=== PATIENT | female | born 1960 | race Caucasian/White ===

== ENCOUNTER 2018-02-04 16:06 | Inpatient (IN) | payer BC, OTHER ==
[~2018-02-04] VITALS: Ht 160 cm; Wt 58.5 kg
[~2018-02-04 16:06] MED LIST: ACET-1600 PO; CEPH-368 PO; CHOL500050 PO; HYDR-3245 PO; IBUP-1223 PO; NONE PER PT
[2018-02-04] MEDS ORDERED: SODIUM CHLORIDE FLUSH 10ML SYR IVF ONE (16:30)
[2018-02-04] MEDS ORDERED: KETOROLAC 30 MG/1 ML IVPush ONE (16:30)
[2018-02-04] MEDS ORDERED: DIAZEPAM 5 MG TABLET PO ONE (16:30)
[2018-02-04] MEDS ORDERED: KETOROLAC 30 MG/1 ML ONE (16:34)
[2018-02-04] MEDS ORDERED: DIAZEPAM 5 MG TABLET ONE ×2 (16:34→17:21)
[2018-02-04 16:53] LABS: ALBUMIN 3.8 g/dL (3.4-5.0); ANION GAP 10 mmol/L (5-15); CALCIUM 8.9 mg/dL (8.5-10.1); CHLORIDE 110 mmol/L (98-107); CREATININE 0.79 mg/dL (0.55-1.02)
[2018-02-04 17:09] LABS: MEAN CORPUSCULAR HGB CONC 33.5 g/dL (32.4-35.8); MEAN CORPUSCULAR VOLUME 92.6 fL (80-100); RED BLOOD COUNT 3.71 x10^6/uL (3.82-5.3)
[2018-02-04 17:10] LABS: LYMPHOCYTES % (AUTO) 21 % (22-44); MEAN PLATELET VOLUME 6.8 fL (7.4-10.4); MONOCYTES % (AUTO) 8 % (2-9); NEUTROPHILS % (AUTO) 66 % (42-75); PLATELET COUNT 319 x10^3/uL (130-400); RED CELL DISTRIBUTION WIDTH 16.2 % (9.6-15.2)
[2018-02-04 17:11] LABS: BASOPHILS # (AUTO) 0.02 x10^3/uL (0-0.1); BASOPHILS % (AUTO) 0 % (0-1); EOSINOPHILS # (AUTO) 0.31 x10^3/uL (0-0.4); EOSINOPHILS % (AUTO) 5 % (1-7); LYMPHOCYTES # (AUTO) 1.25 x10^3/uL (1-3.4); MONOCYTES # (AUTO) 0.45 x10^3/uL (0.2-0.8); NEUTROPHILS # (AUTO) 3.93 x10^3/uL (1.8-6.8)
[2018-02-04 17:12] LABS: MD NO
[2018-02-04] MEDS ORDERED: GADOBUTROL 7.5 MMOL/7.5 ML PFS ONE (18:52)
[2018-02-04] MEDS ORDERED: HYDROcodone/APAP 5/325 TABLET ONE (19:29)
[2018-02-04] MEDS ORDERED: HYDROcodone/APAP 5/325 TABLET PO ONE (19:30)
[2018-02-04] MEDS ORDERED: DEXAMETHASONE 4 MG/ML, 1ML IVPush ONE (20:00)
[2018-02-04] MEDS ORDERED: DEXAMETHASONE 4 MG/ML, 1ML ONE (20:15)
[2018-02-04] MEDS ORDERED: hydrALAzine 20 MG/ML, 1ML IVPush PRN (21:30)
[2018-02-04] MEDS ORDERED: ONDANSETRON 2MG/ML, 2ML IVPush PRN (21:30)
[2018-02-04] MEDS ORDERED: BISACODYL 10 MG SUPP PR PRN (21:30)
[2018-02-04] MEDS ORDERED: TEMAZEPAM 15 MG CAPSULE PO PRN (21:30)
[2018-02-04] MEDS ORDERED: ACETAMINOPHEN 325 MG TABLET PO PRN (21:30)
[2018-02-04] MEDS ORDERED: LIDODERM 5% PATCH TD PRN (21:30)
[2018-02-04] MEDS ORDERED: HYDROmorphone 2 MG/ML, 1ML IVPush PRN (21:30)
[2018-02-04] MEDS: HYDROcodone/APAP 5/325 TABLET PO PRN (22:11)
[2018-02-04 22:21] VITALS: BP 147/82
[2018-02-05] MEDS: DEXAMETHASONE 4 MG/ML, 1ML IVPush SCH ×4 (02:03→20:07)
[2018-02-05] MEDS: HYDROcodone/APAP 5/325 TABLET PO PRN ×5 (02:03→20:07)
[2018-02-05 04:00] VITALS: BP 120/79
[2018-02-05 04:35] LABS: BASOPHILS # (AUTO) 0.02 x10^3/uL (0-0.1); BASOPHILS % (AUTO) 0 % (0-1); EOSINOPHILS % (AUTO) 2 % (1-7); LYMPHOCYTES # (AUTO) 0.95 x10^3/uL (1-3.4); LYMPHOCYTES % (AUTO) 15 % (22-44); MD NO; MEAN CORPUSCULAR HEMOGLOBIN 31.3 pg (27.0-34.8); MEAN CORPUSCULAR HGB CONC 33.9 g/dL (32.4-35.8); MEAN CORPUSCULAR VOLUME 92.4 fL (80-100); MEAN PLATELET VOLUME 6.7 fL (7.4-10.4); MONOCYTES # (AUTO) 0.16 x10^3/uL (0.2-0.8); MONOCYTES % (AUTO) 3 % (2-9); NEUTROPHILS # (AUTO) 5.12 x10^3/uL (1.8-6.8); NEUTROPHILS % (AUTO) 81 % (42-75); PLATELET COUNT 262 x10^3/uL (130-400); RED BLOOD COUNT 3.57 x10^6/uL (3.82-5.3); RED CELL DISTRIBUTION WIDTH 16.5 % (9.6-15.2)
[2018-02-05 04:46] LABS: CHLORIDE 109 mmol/L (98-107)
[2018-02-05 04:56] LABS: ALANINE AMINOTRANSFERASE 43 U/L (12-78); ALBUMIN 3.3 g/dL (3.4-5.0); ALKALINE PHOSPHATASE 187 U/L (45-117); ANION GAP 6 mmol/L (5-15); BILIRUBIN,TOTAL 0.3 mg/dL (0.2-1.0); CALCIUM 8.7 mg/dL (8.5-10.1); CREATININE 0.81 mg/dL (0.55-1.02); TOTAL PROTEIN 7.5 g/dL (6.4-8.2)
[2018-02-05] MEDS ORDERED: GADOBUTROL 7.5 MMOL/7.5 ML PFS ONE (12:30)
[2018-02-05 19:07] VITALS: BP 131/69
[2018-02-06] MEDS: HYDROcodone/APAP 5/325 TABLET PO PRN ×4 (00:35→14:01)
[2018-02-06] MEDS: DEXAMETHASONE 4 MG/ML, 1ML IVPush SCH ×2 (01:57→08:11)
[2018-02-06 02:50] VITALS: BP 123/76
[2018-02-06 04:51] LABS: BASOPHILS % (AUTO) 0 % (0-1); EOSINOPHILS # (AUTO) 0.01 x10^3/uL (0-0.4); EOSINOPHILS % (AUTO) 0 % (1-7); LYMPHOCYTES # (AUTO) 0.98 x10^3/uL (1-3.4); LYMPHOCYTES % (AUTO) 9 % (22-44); MD NO; MEAN CORPUSCULAR HEMOGLOBIN 30.7 pg (27.0-34.8); MEAN CORPUSCULAR HGB CONC 33.2 g/dL (32.4-35.8); MEAN CORPUSCULAR VOLUME 92.4 fL (80-100); MEAN PLATELET VOLUME 6.8 fL (7.4-10.4); MONOCYTES # (AUTO) 0.37 x10^3/uL (0.2-0.8); MONOCYTES % (AUTO) 4 % (2-9); NEUTROPHILS # (AUTO) 9.16 x10^3/uL (1.8-6.8); NEUTROPHILS % (AUTO) 87 % (42-75); PLATELET COUNT 286 x10^3/uL (130-400); RED BLOOD COUNT 3.42 x10^6/uL (3.82-5.3); RED CELL DISTRIBUTION WIDTH 16.3 % (9.6-15.2)
[2018-02-06 05:01] LABS: CHLORIDE 111 mmol/L (98-107)
[2018-02-06 05:08] LABS: ALANINE AMINOTRANSFERASE 48 U/L (12-78); ALBUMIN 3.1 g/dL (3.4-5.0); ALKALINE PHOSPHATASE 169 U/L (45-117); ANION GAP 9 mmol/L (5-15); BILIRUBIN,TOTAL 0.3 mg/dL (0.2-1.0); CALCIUM 8.3 mg/dL (8.5-10.1); TOTAL PROTEIN 7.2 g/dL (6.4-8.2)
[2018-02-06 08:15] VITALS: BP 129/80
[2018-02-06 13:53] VITALS: BP 153/87
[2018-02-06] MEDS ORDERED: LIDO700A20 TD (14:49)
[2018-02-06] MEDS ORDERED: DEXA4TAB66 PO (14:49)
[2018-02-06] MEDS ORDERED: DEXAMETHASONE 4 MG TABLET PO SCH (15:00)
[2018-02-06] MEDS ORDERED: DEXAMETHASONE INTENSOL 1 MG/ML ORAL SOL PO SCH (15:00)
[2018-02-06] MEDS ORDERED: DEXAMETHASONE 4 MG TABLET PO ONE (15:30)
== END 2018-02-06 16:30 | disposition home or self-care (01) | DRG 543 ==
LOC: ED 17:25 → EDIP 20:13 → CCU 21:48 → 4EST 02-05 13:52 → 3NW 02-05 17:48 → DCLOUNGE 02-06 16:19
PROVIDERS: ADMIT Hospitalist; ATTEND Hospitalist
DX: C79.51 Secondary malignant neoplasm of bone (principal); G95.20 Unspecified cord compression; C78.7 Secondary malignant neoplasm of liver and intrahepatic bile duct; M84.48XA Pathological fracture, other site, initial encounter for fracture; C72.0 Malignant neoplasm of spinal cord; G82.20 Paraplegia, unspecified; M48.04 Spinal stenosis, thoracic region; G89.29 Other chronic pain; C50.912 Malignant neoplasm of unspecified site of left female breast; R29.818 Other symptoms and signs involving the nervous system; I10 Essential (primary) hypertension; W19.XXXA Unspecified fall, initial encounter; Z79.899 Other long term (current) drug therapy; Y93.89 Activity, other specified; Y92.89 Other specified places as the place of occurrence of the external cause; Y99.2 Volunteer activity; Z90.12 Acquired absence of left breast and nipple; Z92.3 Personal history of irradiation; Z82.61 Family history of arthritis
CPT/HCPCS: 36415; 70553; 72157; 72158; 77290; 77295; 77300; 77334; 77387; 77412; 77470; 80048; 80053; 82040; 83735; 84100; 85025; 87081; A9585; G0378; J1100

== ENCOUNTER 2018-02-12 13:10 | Inpatient (IN) | payer BC ==
[~2018-02-12] VITALS: Ht 162.6 cm; Wt 66.0 kg
[~2018-02-12 13:10] MED LIST changes: +DEXA4TAB66 PO; +LIDO700A20 TD
[2018-02-12] MEDS ORDERED: PIPERACILLIN/TAZO/PMX 4.5GM 100 ML IV ONE (13:30)
[2018-02-12] MEDS ORDERED: SODIUM CHLORIDE 0.9% 1,000ML IVBOLUS ONE ×3 (13:30→21:00)
[2018-02-12 14:09] LABS: INTERNATIONAL NORMALIZED RATIO 1.06 (0.93-1.1); PROTHROMBIN TIME 11.2 Seconds (9.6-11.5)
[2018-02-12 14:12] LABS: ALANINE AMINOTRANSFERASE 41 U/L (12-78); ALBUMIN 1.9 g/dL (3.4-5.0); ANION GAP 13 mmol/L (5-15); CALCIUM 7.1 mg/dL (8.5-10.1); CHLORIDE 111 mmol/L (98-107); CREATININE 0.95 mg/dL (0.55-1.02)
[2018-02-12 14:15] LABS: ALKALINE PHOSPHATASE 101 U/L (45-117); BILIRUBIN,TOTAL 0.9 mg/dL (0.2-1.0); TOTAL PROTEIN 6.4 g/dL (6.4-8.2)
[2018-02-12 14:18] LABS: MD YES; MEAN CORPUSCULAR HEMOGLOBIN 31.3 pg (27.0-34.8); MEAN CORPUSCULAR HGB CONC 33.4 g/dL (32.4-35.8); MEAN CORPUSCULAR VOLUME 93.7 fL (80-100); MEAN PLATELET VOLUME 7.2 fL (7.4-10.4); PLATELET COUNT 254 x10^3/uL (130-400); RED BLOOD COUNT 4.83 x10^6/uL (3.82-5.3); RED CELL DISTRIBUTION WIDTH 17.7 % (9.6-15.2)
[2018-02-12 14:25] LABS: BAND#(MANUAL) 0.42 x10^3/uL; BANDS%(MANUAL) 30 % (0-7); LYMPH#(MANUAL) 0.11 x10^3/uL (1-3.4); LYMPHS% (MANUAL) 8 % (22-44); METAMYELOCYTES% (MANUAL) 14 % (0-1); MONOS#(MANUAL) 0.06 x10^3/uL (0.3-2.7); MONOS% (MANUAL) 4 % (2-9); MYELOCYTES# (MANUAL) 0.08 x10^3/uL (0-0); MYELOCYTES% (MANUAL) 6 % (0-0); SEG#(MANUAL) 0.53 x10^3/uL (1.8-6.8); SEGS% (MANUAL) 38 % (42-75)
[2018-02-12 14:26] LABS: <PLATELET ESTIMATE> ADEQUATE; <PLT MORPHOLOGY> NORMAL PLT MORPH; ANISOCYTOSIS 1+; POLYCHROMASIA 1+
[2018-02-12] MEDS ORDERED: VANCOMYCIN PER PHARMACY MC PRN (14:30)
[2018-02-12] MEDS ORDERED: VANCOMYCIN PMX 1GM/200ML 200 ML IV ONE (14:30)
[2018-02-12] MEDS ORDERED: PALB75CA PO (15:17)
[2018-02-12] MEDS ORDERED: ROCURONIUM 10 MG/ML,10ML ONE (15:43)
[2018-02-12] MEDS ORDERED: PROPOFOL 10 MG/ML, 50ML ONE (15:43)
[2018-02-12] MEDS ORDERED: FENTANYL PF 100 MCG/2ML IV PRN (16:30)
[2018-02-12] MEDS ORDERED: MORPHINE SULFATE 4 MG/ML, 1ML IVPush PRN (16:30)
[2018-02-12] MEDS ORDERED: MEPERIDINE/PF 25MG/0.5ML IVPush PRN (16:30)
[2018-02-12] MEDS ORDERED: HYDROmorphone 2 MG/ML, 1ML IVPush PRN (16:30)
[2018-02-12] MEDS ORDERED: DIAZEPAM 5 MG/ML, 2ML IVPush PRN (16:30)
[2018-02-12] MEDS ORDERED: D5%-0.45NACL+KCL 20MEQ 1,000 ML IV SCH (17:07)
[2018-02-12] MEDS ORDERED: PROPOFOL 100 ML IV ONE (17:23)
[2018-02-12] MEDS ORDERED: LABETALOL 5MG/ML, 20ML IVPush PRN (17:30)
[2018-02-12] MEDS ORDERED: ONDANSETRON 2MG/ML, 2ML IVPush PRN (17:30)
[2018-02-12] MEDS ORDERED: CEFOTETAN PMX 1GM/50ML 50 ML IVPB SCH (17:30)
[2018-02-12] MEDS ORDERED: FLUCONAZOLE 200 MG/100 ML 100 ML IV SCH ×2 (17:30→21:00)
[2018-02-12] MEDS ORDERED: METRONIDAZOLE PMX 500MG/100ML 100 ML IVPB SCH (17:30)
[2018-02-12] MEDS ORDERED: FENTANYL PF 100 MCG/2ML IVPush PRN (20:30)
[2018-02-12] MEDS: SODIUM CHLORIDE 0.9% 1,000 ML IV SCH (20:38)
[2018-02-12] MEDS: SODIUM CHLORIDE 0.9% 1,000ML IVBOLUS PRN (20:39)
[2018-02-12] MEDS ORDERED: SODIUM CHLORIDE 0.9% 1,000 ML IV SCH (21:00)
[2018-02-12] MEDS ORDERED: SENNOSIDES 8.8 MG/5 ML ORAL SOL NG PRN (21:00)
[2018-02-12] MEDS ORDERED: PHARMACY MAY ADJ FOR RENAL FX MC SCH (21:00)
[2018-02-12] MEDS ORDERED: GLUCAGON 1 MG IM PRN (21:00)
[2018-02-12] MEDS ORDERED: FAMOTIDINE 20 MG/2 ML IVPush SCH (21:00)
[2018-02-12] MEDS ORDERED: SENNA/DOCUSATE TABLET NG PRN (21:00)
[2018-02-12] MEDS ORDERED: DEXTROSE 4 GM TAB.CHEW PO PRN (21:00)
[2018-02-12] MEDS ORDERED: BISACODYL 10 MG SUPP PR PRN (21:00)
[2018-02-12] MEDS ORDERED: LIDOCAINE-MPF 1%, 2ML ENDO PRN (21:00)
[2018-02-12] MEDS ORDERED: LACTULOSE 20 GM/30 ML UDC NG PRN (21:00)
[2018-02-12] MEDS ORDERED: DEXTROSE 50%, 50ML SYRINGE IVPush PRN (21:00)
[2018-02-12] MEDS: PIPERACILLIN/TAZO/PMX 3.375GM 50 ML IV SCH (21:52)
[2018-02-12] MEDS: SODIUM CHLORIDE FLUSH 10ML SYR IVF SCH (21:52)
[2018-02-12] MEDS: INSULIN LISPRO 100 UNITS/ML, PEN SQ-INSULIN SCH (21:58)
[2018-02-12] MEDS: PANTOPRAZOLE 40 MG IV IV SCH (22:03)
[2018-02-12] MEDS: LINEZOLID PMX 600MG/300ML 300 ML IV SCH (22:11)
[2018-02-12] MEDS: ALBUTEROL/IPRATROPIUM 2.5MG/0.5MG, 3 ML INLINE SCH (22:42)
[2018-02-12] MEDS: FENTANYL PF 100 MCG/2ML IVPush PRN (23:52)
[2018-02-13 00:51] VITALS: BP 116/66
[2018-02-13] MEDS: FENTANYL PF 100 MCG/2ML IVPush PRN ×3 (02:18→12:03)
[2018-02-13] MEDS: ALBUTEROL/IPRATROPIUM 2.5MG/0.5MG, 3 ML INLINE SCH ×6 (02:27→22:43)
[2018-02-13] MEDS: SODIUM CHLORIDE 0.9% 1,000 ML IV SCH ×4 (03:11→23:10)
[2018-02-13] MEDS: PIPERACILLIN/TAZO/PMX 3.375GM 50 ML IV SCH ×4 (03:15→20:51)
[2018-02-13] MEDS: PROPOFOL 100 ML IV PRN ×2 (03:34→10:14)
[2018-02-13 04:28] LABS: MEAN CORPUSCULAR HEMOGLOBIN 31.6 pg (27.0-34.8); MEAN CORPUSCULAR HGB CONC 33.8 g/dL (32.4-35.8); MEAN CORPUSCULAR VOLUME 93.5 fL (80-100); PLATELET COUNT 129 x10^3/uL (130-400); RED CELL DISTRIBUTION WIDTH 17.5 % (9.6-15.2)
[2018-02-13 04:33] LABS: ALANINE AMINOTRANSFERASE 77 U/L (12-78); ALBUMIN 1.1 g/dL (3.4-5.0); ANION GAP 11 mmol/L (5-15); CHLORIDE 118 mmol/L (98-107)
[2018-02-13 04:36] LABS: ALKALINE PHOSPHATASE 73 U/L (45-117); BILIRUBIN,TOTAL 0.8 mg/dL (0.2-1.0); CREATININE 0.73 mg/dL (0.55-1.02); TOTAL PROTEIN 4.1 g/dL (6.4-8.2)
[2018-02-13 04:44] LABS: CALCIUM 5.4 mg/dL (8.5-10.1)
[2018-02-13] MEDS ORDERED: SODIUM CHLORIDE 0.9% IV SCH (05:00)
[2018-02-13] MEDS ORDERED: SODIUM BICARBONATE IV SCH (05:00)
[2018-02-13] MEDS ORDERED: SODIUM BICARB 8.4%, 50ML SYRINGE ONE (05:25)
[2018-02-13] MEDS ORDERED: CALCIUM GLUCONATE 4.6 MEQ in SODIUM CHLORIDE 0.9% 50 ML IV ONE ×2 (05:30→15:00)
[2018-02-13 05:38] LABS: MD YES
[2018-02-13 05:46] LABS: <PLATELET ESTIMATE> DECREASED; <PLT MORPHOLOGY> NORMAL PLT MORPH; ANISOCYTOSIS 1+; BAND#(MANUAL) 0.26 x10^3/uL; BANDS%(MANUAL) 26 % (0-7); LYMPH#(MANUAL) 0.05 x10^3/uL (1-3.4); LYMPHS% (MANUAL) 5 % (22-44); METAMYELOCYTES# (MANUAL) 0.12 x10^3/uL (0-0); METAMYELOCYTES% (MANUAL) 12 % (0-1); MONOS#(MANUAL) 0.02 x10^3/uL (0.3-2.7); MONOS% (MANUAL) 2 % (2-9); POLYCHROMASIA 1+; SEG#(MANUAL) 0.55 x10^3/uL (1.8-6.8); SEGS% (MANUAL) 55 % (42-75); TOXIC GRAN 1+
[2018-02-13 05:47] LABS: ECHINOCYTES 1+
[2018-02-13] MEDS: INSULIN LISPRO 100 UNITS/ML, PEN SQ-INSULIN SCH ×4 (07:00→21:00)
[2018-02-13] MEDS: PANTOPRAZOLE 40 MG IV IV SCH ×2 (08:12→20:50)
[2018-02-13] MEDS: SODIUM CHLORIDE FLUSH 10ML SYR IVF SCH ×2 (08:12→20:51)
[2018-02-13] MEDS: LINEZOLID PMX 600MG/300ML 300 ML IV SCH (08:49)
[2018-02-13] MEDS ORDERED: VANCOMYCIN PER PHARMACY MC PRN (09:00)
[2018-02-13] MEDS ORDERED: PHARMACOKINETIC MONITORING MC PRN (09:30)
[2018-02-13] MEDS ORDERED: DEXMEDETOMIDINE 1,000 MCG in SODIUM CHLORIDE 0.9% 240 ML IV PRN (10:30)
[2018-02-13] MEDS: VANCOMYCIN 1,200 MG in SODIUM CHLORIDE 0.9% 250 ML IV SCH (11:13)
[2018-02-13] MEDS ORDERED: ALBUMIN HUMAN 25% 100 ML ONE (14:48)
[2018-02-13] MEDS: ALBUMIN HUMAN 25% 100 ML IV SCH ×2 (14:56→21:03)
[2018-02-13] MEDS: SODIUM CHLORIDE 0.9% 1,000ML IVBOLUS PRN (15:02)
[2018-02-13] MEDS: SODIUM BICARBONATE 8.4% 150 MEQ in DEXTROSE 5% 1,000 ML IV SCH (17:21)
[2018-02-13] MEDS: FLUCONAZOLE 200 MG/100 ML 100 ML IV SCH (19:36)
[2018-02-14] MEDS: FENTANYL PF 100 MCG/2ML IVPush PRN ×6 (00:33→21:53)
[2018-02-14] MEDS: SODIUM BICARBONATE 8.4% 150 MEQ in DEXTROSE 5% 1,000 ML IV SCH (00:34)
[2018-02-14] MEDS: ALBUTEROL/IPRATROPIUM 2.5MG/0.5MG, 3 ML INLINE SCH ×3 (02:01→10:44)
[2018-02-14] MEDS: ALBUMIN HUMAN 25% 100 ML IV SCH ×4 (03:02→21:50)
[2018-02-14] MEDS: PIPERACILLIN/TAZO/PMX 3.375GM 50 ML IV SCH (03:02)
[2018-02-14] MEDS: VANCOMYCIN 1,200 MG in SODIUM CHLORIDE 0.9% 250 ML IV SCH (03:37)
[2018-02-14] MEDS ORDERED: SODIUM BICARBONATE IV SCH (05:00)
[2018-02-14] MEDS ORDERED: SODIUM CHLORIDE 0.9% IV SCH (05:00)
[2018-02-14 05:35] LABS: CHLORIDE 111 mmol/L (98-107)
[2018-02-14 05:42] LABS: ANION GAP 11 mmol/L (5-15); CALCIUM 6.4 mg/dL (8.5-10.1); CREATININE 0.64 mg/dL (0.55-1.02); MEAN CORPUSCULAR HEMOGLOBIN 31.8 pg (27.0-34.8); MEAN CORPUSCULAR HGB CONC 34.5 g/dL (32.4-35.8); MEAN CORPUSCULAR VOLUME 92.3 fL (80-100); RED BLOOD COUNT 2.28 x10^6/uL (3.82-5.3); RED CELL DISTRIBUTION WIDTH 17.5 % (9.6-15.2)
[2018-02-14] MEDS: SODIUM CHLORIDE 0.9% 1,000 ML IV SCH (05:50)
[2018-02-14 06:17] LABS: MD YES
[2018-02-14 06:23] LABS: ANISOCYTOSIS 1+; BANDS%(MANUAL) 16 % (0-7); LYMPH#(MANUAL) 0.17 x10^3/uL (1-3.4); LYMPHS% (MANUAL) 9 % (22-44); METAMYELOCYTES# (MANUAL) 0.11 x10^3/uL (0-0); METAMYELOCYTES% (MANUAL) 6 % (0-1); NRBC % (MANUAL) 1 % (0-1); SEG#(MANUAL) 1.31 x10^3/uL (1.8-6.8); SEGS% (MANUAL) 69 % (42-75)
[2018-02-14 06:24] LABS: <PLATELET ESTIMATE> DECREASED; <PLT MORPHOLOGY> NORMAL PLT MORPH; POLYCHROMASIA 1+
[2018-02-14 06:29] LABS: TOXIC GRAN 1+
[2018-02-14 06:37] LABS: MEAN PLATELET VOLUME 7.6 fL (7.4-10.4)
[2018-02-14 06:39] LABS: PLATELET COUNT 43 x10^3/uL (130-400)
[2018-02-14] MEDS: INSULIN LISPRO 100 UNITS/ML, PEN SQ-INSULIN SCH ×4 (07:00→21:00)
[2018-02-14] MEDS: SODIUM CHLORIDE FLUSH 10ML SYR IVF SCH ×2 (09:00→20:51)
[2018-02-14] MEDS: PANTOPRAZOLE 40 MG IV IV SCH ×2 (09:23→20:50)
[2018-02-14] MEDS ORDERED: FILTER, DISP 1.2 MICRON FOR TPN/PVN IV PRN ×2 (09:30→17:00)
[2018-02-14 09:39] LABS: ALANINE AMINOTRANSFERASE 50 U/L (12-78); ALBUMIN 2.5 g/dL (3.4-5.0)
[2018-02-14 09:41] LABS: ALKALINE PHOSPHATASE 93 U/L (45-117); BILIRUBIN,TOTAL 1.1 mg/dL (0.2-1.0)
[2018-02-14] MEDS: ERTAPENEM 1 GM in SODIUM CHLORIDE 0.9% 50 ML IV SCH (09:49)
[2018-02-14] MEDS ORDERED: SODIUM CHLORIDE 0.45% IV SCH (10:00)
[2018-02-14] MEDS ORDERED: POTASSIUM CHLORIDE IV SCH (10:00)
[2018-02-14 10:24] LABS: TROPONIN I 0.021 ng/mL (0.000-0.045)
[2018-02-14] MEDS ORDERED: POTASSIUM PHOSPHATE 44 MEQ in SODIUM CHLORIDE 0.9% 500 ML IV ONE (10:30)
[2018-02-14] MEDS ORDERED: SODIUM PHOSPHATE IV ONE (11:00)
[2018-02-14] MEDS ORDERED: DEXTROSE 5% IV ONE (11:00)
[2018-02-14 13:42] LABS: MEAN CORPUSCULAR HEMOGLOBIN 31.4 pg (27.0-34.8); MEAN CORPUSCULAR HGB CONC 34.2 g/dL (32.4-35.8); MEAN CORPUSCULAR VOLUME 91.9 fL (80-100); MEAN PLATELET VOLUME 7.9 fL (7.4-10.4); RED BLOOD COUNT 2.24 x10^6/uL (3.82-5.3); RED CELL DISTRIBUTION WIDTH 17.4 % (9.6-15.2)
[2018-02-14 13:43] LABS: PLATELET COUNT 46 x10^3/uL (130-400)
[2018-02-14 13:44] LABS: MD YES
[2018-02-14 13:51] LABS: <PLATELET ESTIMATE> DECREASED; <PLT MORPHOLOGY> NORMAL PLT MORPH; ANISOCYTOSIS 1+; BAND#(MANUAL) 0.34 x10^3/uL; BANDS%(MANUAL) 14 % (0-7); LYMPH#(MANUAL) 0.26 x10^3/uL (1-3.4); LYMPHS% (MANUAL) 11 % (22-44); METAMYELOCYTES# (MANUAL) 0.07 x10^3/uL (0-0); METAMYELOCYTES% (MANUAL) 3 % (0-1); MONOS#(MANUAL) 0.02 x10^3/uL (0.3-2.7); MONOS% (MANUAL) 1 % (2-9); POLYCHROMASIA 1+; SEGS% (MANUAL) 71 % (42-75); TOXIC GRAN 1+
[2018-02-14] MEDS ORDERED: PVN PER PHARMACY IV SCH (17:00)
[2018-02-14] MEDS ORDERED: SODIUM CHLORIDE 0.9% 1,000 ML IV SCH (17:00)
[2018-02-14] MEDS ORDERED: DEXTROSE 50%, 50ML SYRINGE IVPush PRN (17:00)
[2018-02-14] MEDS ORDERED: SMOF TPN IV SCH (17:00)
[2018-02-14] MEDS ORDERED: FAT EMUL IV SCH (17:00)
[2018-02-14] MEDS ORDERED: DEXTROSE 70% IV SCH (17:00)
[2018-02-14] MEDS ORDERED: DEXTROSE 10% 500 ML IV PRN (17:00)
[2018-02-14] MEDS ORDERED: AMINO ACID 10% IV SCH (17:00)
[2018-02-14] MEDS ORDERED: [UNRECOGNIZED DRUG - OTHER] IV SCH (17:00)
[2018-02-14] MEDS ORDERED: FUROSEMIDE 20 MG/2 ML ONE (17:49)
[2018-02-14] MEDS ORDERED: FUROSEMIDE 20 MG/2 ML IV ONE (18:00)
[2018-02-14] MEDS: FLUCONAZOLE 200 MG/100 ML 100 ML IV SCH (20:06)
[2018-02-15] MEDS: ENALAPRILAT 1.25 MG/ML, 2ML IVPush PRN ×3 (00:41→12:35)
[2018-02-15] MEDS: FENTANYL PF 100 MCG/2ML IVPush PRN ×11 (00:44→20:01)
[2018-02-15] MEDS: ALBUMIN HUMAN 25% 100 ML IV SCH ×3 (03:31→20:29)
[2018-02-15 04:23] LABS: ANION GAP 8 mmol/L (5-15); CALCIUM 6.9 mg/dL (8.5-10.1); CHLORIDE 110 mmol/L (98-107)
[2018-02-15 04:24] LABS: MEAN CORPUSCULAR HEMOGLOBIN 31.6 pg (27.0-34.8); MEAN CORPUSCULAR HGB CONC 34.6 g/dL (32.4-35.8); MEAN CORPUSCULAR VOLUME 91.4 fL (80-100); MEAN PLATELET VOLUME 8.5 fL (7.4-10.4); RED BLOOD COUNT 2.45 x10^6/uL (3.82-5.3); RED CELL DISTRIBUTION WIDTH 17.4 % (9.6-15.2)
[2018-02-15 04:26] LABS: PLATELET COUNT 40 x10^3/uL (130-400)
[2018-02-15 04:29] LABS: ALANINE AMINOTRANSFERASE 42 U/L (12-78); ALKALINE PHOSPHATASE 123 U/L (45-117); BILIRUBIN,TOTAL 1.3 mg/dL (0.2-1.0); CREATININE 0.44 mg/dL (0.55-1.02); TOTAL PROTEIN 5.7 g/dL (6.4-8.2); TRIGLYCERIDES 186 mg/dL (50-200)
[2018-02-15 04:49] LABS: MD YES
[2018-02-15 04:52] LABS: BAND#(MANUAL) 0.32 x10^3/uL; BANDS%(MANUAL) 9 % (0-7); LYMPH#(MANUAL) 0.18 x10^3/uL (1-3.4); LYMPHS% (MANUAL) 5 % (22-44); MONOS#(MANUAL) 0.04 x10^3/uL (0.3-2.7); MONOS% (MANUAL) 1 % (2-9); SEG#(MANUAL) 2.98 x10^3/uL (1.8-6.8); SEGS% (MANUAL) 85 % (42-75)
[2018-02-15 04:53] LABS: <PLATELET ESTIMATE> DECREASED; <PLT MORPHOLOGY> NORMAL PLT MORPH; ANISOCYTOSIS 1+; POLYCHROMASIA 1+; TOXIC GRAN 1+
[2018-02-15] MEDS: LABETALOL 5MG/ML, 20ML IVPush PRN ×3 (05:07→16:33)
[2018-02-15] MEDS: INSULIN LISPRO 100 UNITS/ML, PEN SQ-INSULIN SCH ×2 (07:00→09:00)
[2018-02-15] MEDS ORDERED: POTASSIUM PHOSPHATE 22 MEQ in SODIUM CHLORIDE 0.9% 500 ML IV ONE (07:30)
[2018-02-15] MEDS: PANTOPRAZOLE 40 MG IV IV SCH ×2 (08:27→21:19)
[2018-02-15] MEDS: SODIUM CHLORIDE FLUSH 10ML SYR IVF SCH ×2 (09:00→21:19)
[2018-02-15] MEDS ORDERED: FUROSEMIDE 20 MG/2 ML IV SCH (09:00)
[2018-02-15] MEDS: ERTAPENEM 1 GM in SODIUM CHLORIDE 0.9% 50 ML IV SCH (09:52)
[2018-02-15] MEDS: FUROSEMIDE 20 MG/2 ML IV SCH ×2 (09:52→22:29)
[2018-02-15] MEDS: hydrALAzine 20 MG/ML, 1ML IV PRN ×2 (13:50→18:28)
[2018-02-15] MEDS ORDERED: ACETAMINOPHEN 650 MG SUPP ONE (14:23)
[2018-02-15] MEDS: ACETAMINOPHEN 650 MG SUPP PR PRN (14:28)
[2018-02-15] MEDS ORDERED: FAT EMUL IV SCH (17:00)
[2018-02-15] MEDS ORDERED: [UNRECOGNIZED DRUG - OTHER] IV SCH (17:00)
[2018-02-15] MEDS ORDERED: FILTER, DISP 1.2 MICRON FOR TPN/PVN IV PRN (17:00)
[2018-02-15] MEDS ORDERED: DEXTROSE 70% IV SCH (17:00)
[2018-02-15] MEDS ORDERED: AMINO ACID 10% IV SCH (17:00)
[2018-02-15] MEDS ORDERED: SMOF TPN IV SCH (17:00)
[2018-02-15] MEDS: FLUCONAZOLE 200 MG/100 ML 100 ML IV SCH (20:02)
[2018-02-16] MEDS: FENTANYL PF 100 MCG/2ML IVPush PRN ×10 (00:20→23:14)
[2018-02-16] MEDS: LABETALOL 5MG/ML, 20ML IVPush PRN ×3 (00:21→17:53)
[2018-02-16] MEDS: ACETAMINOPHEN 650 MG SUPP PR PRN (02:31)
[2018-02-16 04:36] LABS: MEAN CORPUSCULAR HEMOGLOBIN 31.5 pg (27.0-34.8); MEAN CORPUSCULAR HGB CONC 34.7 g/dL (32.4-35.8); MEAN CORPUSCULAR VOLUME 90.8 fL (80-100); RED BLOOD COUNT 2.57 x10^6/uL (3.82-5.3); RED CELL DISTRIBUTION WIDTH 17.5 % (9.6-15.2)
[2018-02-16 04:48] LABS: ALBUMIN 3.2 g/dL (3.4-5.0); ANION GAP 11 mmol/L (5-15); CHLORIDE 104 mmol/L (98-107)
[2018-02-16 04:57] LABS: MD YES
[2018-02-16 04:58] LABS: ALANINE AMINOTRANSFERASE 41 U/L (12-78); ALKALINE PHOSPHATASE 139 U/L (45-117); PREALBUMIN 6.5 mg/dL (20.0-40.0); TOTAL PROTEIN 5.9 g/dL (6.4-8.2)
[2018-02-16 05:05] LABS: ANISOCYTOSIS 1+; BAND#(MANUAL) 0.68 x10^3/uL; BANDS%(MANUAL) 25 % (0-7); EOS#(MANUAL) 0.05 x10^3/uL (0.0-0.4); EOS% (MANUAL) 2 % (1-7); LYMPH#(MANUAL) 0.46 x10^3/uL (1-3.4); LYMPHS% (MANUAL) 17 % (22-44); OVALOCYTES 1+; POLYCHROMASIA 1+; SEG#(MANUAL) 1.51 x10^3/uL (1.8-6.8); SEGS% (MANUAL) 56 % (42-75); TOXIC GRAN 1+
[2018-02-16 05:06] LABS: <PLATELET ESTIMATE> DECREASED; <PLT MORPHOLOGY> NORMAL PLT MORPH; MEAN PLATELET VOLUME 8.9 fL (7.4-10.4)
[2018-02-16 05:08] LABS: PLATELET COUNT 29 x10^3/uL (130-400)
[2018-02-16] MEDS: INSULIN LISPRO 100 UNITS/ML, PEN SQ-INSULIN SCH (08:52)
[2018-02-16] MEDS: ALBUMIN HUMAN 25% 100 ML IV SCH ×2 (09:08→20:53)
[2018-02-16] MEDS: PANTOPRAZOLE 40 MG IV IV SCH ×2 (09:08→21:01)
[2018-02-16] MEDS: ERTAPENEM 1 GM in SODIUM CHLORIDE 0.9% 50 ML IV SCH (09:08)
[2018-02-16] MEDS: SODIUM CHLORIDE FLUSH 10ML SYR IVF SCH ×2 (09:09→21:01)
[2018-02-16 10:36] LABS: CLOSTRIDIUM DIFFICILE ANTIGEN NEGATIVE; CLOSTRIDIUM DIFFICILE TOXIN NEGATIVE (Negative)
[2018-02-16] MEDS: FUROSEMIDE 20 MG/2 ML IV SCH ×2 (10:38→22:00)
[2018-02-16] MEDS: hydrALAzine 20 MG/ML, 1ML IV PRN (13:35)
[2018-02-16] MEDS ORDERED: FILTER, DISP 1.2 MICRON FOR TPN/PVN IV PRN (17:00)
[2018-02-16] MEDS ORDERED: SMOF TPN IV SCH (17:00)
[2018-02-16] MEDS ORDERED: AMINO ACID 10% IV SCH (17:00)
[2018-02-16] MEDS ORDERED: [UNRECOGNIZED DRUG - OTHER] IV SCH (17:00)
[2018-02-16] MEDS ORDERED: DEXTROSE 70% IV SCH (17:00)
[2018-02-16] MEDS ORDERED: FAT EMUL IV SCH (17:00)
[2018-02-16] MEDS: FLUCONAZOLE 200 MG/100 ML 100 ML IV SCH (20:05)
[2018-02-17] MEDS: FENTANYL PF 100 MCG/2ML IVPush PRN ×10 (01:35→21:20)
[2018-02-17] MEDS: LABETALOL 5MG/ML, 20ML IVPush PRN (01:36)
[2018-02-17 04:34] LABS: MEAN CORPUSCULAR HEMOGLOBIN 31.3 pg (27.0-34.8); MEAN CORPUSCULAR HGB CONC 34.2 g/dL (32.4-35.8); MEAN CORPUSCULAR VOLUME 91.5 fL (80-100); MEAN PLATELET VOLUME 8.6 fL (7.4-10.4); RED BLOOD COUNT 2.84 x10^6/uL (3.82-5.3); RED CELL DISTRIBUTION WIDTH 17.8 % (9.6-15.2)
[2018-02-17 04:38] LABS: ALANINE AMINOTRANSFERASE 47 U/L (12-78); ALBUMIN 3.5 g/dL (3.4-5.0); ANION GAP 9 mmol/L (5-15); CALCIUM 8.8 mg/dL (8.5-10.1); CHLORIDE 103 mmol/L (98-107); CREATININE 0.53 mg/dL (0.55-1.02)
[2018-02-17 04:40] LABS: ALKALINE PHOSPHATASE 147 U/L (45-117); BILIRUBIN,TOTAL 1.4 mg/dL (0.2-1.0); TOTAL PROTEIN 6.5 g/dL (6.4-8.2)
[2018-02-17 04:43] LABS: PLATELET COUNT 35 x10^3/uL (130-400)
[2018-02-17 05:38] LABS: MD YES
[2018-02-17 05:40] LABS: BAND#(MANUAL) 0.36 x10^3/uL; BANDS%(MANUAL) 14 % (0-7); LYMPH#(MANUAL) 0.36 x10^3/uL (1-3.4); LYMPHS% (MANUAL) 14 % (22-44); METAMYELOCYTES# (MANUAL) 0.05 x10^3/uL (0-0); METAMYELOCYTES% (MANUAL) 2 % (0-1); MONOS#(MANUAL) 0.08 x10^3/uL (0.3-2.7); MONOS% (MANUAL) 3 % (2-9); MYELOCYTES# (MANUAL) 0.03 x10^3/uL (0-0); MYELOCYTES% (MANUAL) 1 % (0-0); SEG#(MANUAL) 1.72 x10^3/uL (1.8-6.8); SEGS% (MANUAL) 66 % (42-75)
[2018-02-17 05:41] LABS: <PLATELET ESTIMATE> DECREASED; <PLT MORPHOLOGY> NORMAL PLT MORPH; ANISOCYTOSIS 1+; TOXIC GRAN 1+
[2018-02-17 05:42] LABS: POLYCHROMASIA 1+
[2018-02-17] MEDS: ALBUMIN HUMAN 25% 100 ML IV SCH ×2 (07:43→20:39)
[2018-02-17] MEDS: SODIUM CHLORIDE FLUSH 10ML SYR IVF SCH ×2 (07:44→21:08)
[2018-02-17] MEDS: ENALAPRILAT 1.25 MG/ML, 2ML IVPush PRN (07:54)
[2018-02-17] MEDS: INSULIN LISPRO 100 UNITS/ML, PEN SQ-INSULIN SCH (09:00)
[2018-02-17] MEDS: PANTOPRAZOLE 40 MG IV IV SCH ×2 (09:02→21:07)
[2018-02-17] MEDS: ERTAPENEM 1 GM in SODIUM CHLORIDE 0.9% 50 ML IV SCH (09:03)
[2018-02-17] MEDS: FUROSEMIDE 20 MG/2 ML IV SCH ×2 (10:32→22:09)
[2018-02-17] MEDS: SODIUM CHLORIDE 0.9% 1,000ML IVBOLUS PRN (11:33)
[2018-02-17] MEDS: LISINOPRIL 5 MG TABLET PO SCH ×2 (13:43→21:07)
[2018-02-17] MEDS ORDERED: [UNRECOGNIZED DRUG - OTHER] IV SCH (17:00)
[2018-02-17] MEDS ORDERED: FAT EMUL IV SCH (17:00)
[2018-02-17] MEDS ORDERED: DEXTROSE 70% IV SCH (17:00)
[2018-02-17] MEDS ORDERED: AMINO ACID 10% IV SCH (17:00)
[2018-02-17] MEDS ORDERED: SMOF TPN IV SCH (17:00)
[2018-02-17] MEDS ORDERED: FILTER, DISP 1.2 MICRON FOR TPN/PVN IV PRN (17:00)
[2018-02-17] MEDS: FLUCONAZOLE 200 MG/100 ML 100 ML IV SCH (19:35)
[2018-02-17] MEDS: OXYcodone 5 MG/5 ML ORAL.SOL UDC PO PRN (21:47)
[2018-02-18] MEDS: OXYcodone 5 MG/5 ML ORAL.SOL UDC PO PRN ×3 (04:22→19:30)
[2018-02-18 04:42] LABS: MEAN CORPUSCULAR HEMOGLOBIN 31.5 pg (27.0-34.8); MEAN CORPUSCULAR HGB CONC 34.2 g/dL (32.4-35.8); RED BLOOD COUNT 2.62 x10^6/uL (3.82-5.3); RED CELL DISTRIBUTION WIDTH 17.1 % (9.6-15.2)
[2018-02-18 04:53] LABS: ALANINE AMINOTRANSFERASE 69 U/L (12-78); ALBUMIN 3.5 g/dL (3.4-5.0); ANION GAP 8 mmol/L (5-15); CALCIUM 8.4 mg/dL (8.5-10.1); CHLORIDE 102 mmol/L (98-107); CREATININE 0.48 mg/dL (0.55-1.02); TRIGLYCERIDES 106 mg/dL (50-200)
[2018-02-18 04:55] LABS: ALKALINE PHOSPHATASE 170 U/L (45-117); BILIRUBIN,TOTAL 1.2 mg/dL (0.2-1.0); TOTAL PROTEIN 6.4 g/dL (6.4-8.2)
[2018-02-18 05:14] LABS: MEAN PLATELET VOLUME 9.7 fL (7.4-10.4)
[2018-02-18 05:16] LABS: PLATELET COUNT 38 x10^3/uL (130-400)
[2018-02-18 05:28] LABS: MD YES
[2018-02-18 05:33] LABS: BAND#(MANUAL) 0.31 x10^3/uL; BANDS%(MANUAL) 12 % (0-7); EOS#(MANUAL) 0.05 x10^3/uL (0.0-0.4); EOS% (MANUAL) 2 % (1-7); LYMPH#(MANUAL) 0.39 x10^3/uL (1-3.4); LYMPHS% (MANUAL) 15 % (22-44); MONOS#(MANUAL) 0.03 x10^3/uL (0.3-2.7); MONOS% (MANUAL) 1 % (2-9); NRBC % (MANUAL) 2 % (0-1); SEG#(MANUAL) 1.82 x10^3/uL (1.8-6.8); SEGS% (MANUAL) 70 % (42-75)
[2018-02-18 05:34] LABS: <PLATELET ESTIMATE> DECREASED; <PLT MORPHOLOGY> NORMAL PLT MORPH; ANISOCYTOSIS 1+; POLYCHROMASIA 1+; TOXIC GRAN 1+
[2018-02-18] MEDS ORDERED: OXYcodone IR 5MG TABLET PO PRN (08:30)
[2018-02-18] MEDS: INSULIN LISPRO 100 UNITS/ML, PEN SQ-INSULIN SCH (08:45)
[2018-02-18] MEDS: SODIUM CHLORIDE FLUSH 10ML SYR IVF SCH ×2 (08:59→21:46)
[2018-02-18] MEDS: ERTAPENEM 1 GM in SODIUM CHLORIDE 0.9% 50 ML IV SCH (08:59)
[2018-02-18] MEDS: PANTOPRAZOLE 40 MG IV IV SCH ×2 (08:59→21:46)
[2018-02-18] MEDS: LISINOPRIL 5 MG TABLET PO SCH ×2 (08:59→21:46)
[2018-02-18] MEDS ORDERED: TBO-FILGRASTIM 480 MCG/0.8 ML SQ ONE (11:00)
[2018-02-18 14:17] VITALS: BP 100/66
[2018-02-18] MEDS ORDERED: SMOF TPN IV SCH (17:00)
[2018-02-18] MEDS ORDERED: DEXTROSE 70% IV SCH (17:00)
[2018-02-18] MEDS ORDERED: AMINO ACID 10% IV SCH (17:00)
[2018-02-18] MEDS ORDERED: FAT EMUL IV SCH (17:00)
[2018-02-18] MEDS ORDERED: [UNRECOGNIZED DRUG - OTHER] IV SCH (17:00)
[2018-02-18] MEDS: FILTER, DISP 1.2 MICRON FOR TPN/PVN IV PRN (18:10)
[2018-02-18 18:44] VITALS: BP 132/77
[2018-02-18] MEDS: FLUCONAZOLE 200 MG/100 ML 100 ML IV SCH (19:29)
[2018-02-19 02:16] VITALS: BP 140/68
[2018-02-19] MEDS: OXYcodone 5 MG/5 ML ORAL.SOL UDC PO PRN ×6 (02:24→22:44)
[2018-02-19 05:45] LABS: CHLORIDE 99 mmol/L (98-107)
[2018-02-19 05:52] LABS: MEAN CORPUSCULAR HEMOGLOBIN 30.7 pg (27.0-34.8); MEAN CORPUSCULAR VOLUME 90.4 fL (80-100); MEAN PLATELET VOLUME 9.9 fL (7.4-10.4); PLATELET COUNT 74 x10^3/uL (130-400); RED BLOOD COUNT 2.39 x10^6/uL (3.82-5.3); RED CELL DISTRIBUTION WIDTH 17.6 % (9.6-15.2)
[2018-02-19 06:02] LABS: ANION GAP 8 mmol/L (5-15); CALCIUM 7.8 mg/dL (8.5-10.1); CREATININE 0.57 mg/dL (0.55-1.02)
[2018-02-19 06:27] LABS: MD YES
[2018-02-19 06:31] LABS: BAND#(MANUAL) 0.16 x10^3/uL; BANDS%(MANUAL) 4 % (0-7); LYMPH#(MANUAL) 0.96 x10^3/uL (1-3.4); LYMPHS% (MANUAL) 24 % (22-44); METAMYELOCYTES# (MANUAL) 0.08 x10^3/uL (0-0); METAMYELOCYTES% (MANUAL) 2 % (0-1); MONOS#(MANUAL) 0.08 x10^3/uL (0.3-2.7); MONOS% (MANUAL) 2 % (2-9); MYELOCYTES# (MANUAL) 0.04 x10^3/uL (0-0); MYELOCYTES% (MANUAL) 1 % (0-0); REACTIVE LYMPHS # (MANUAL) 0.04 x10^3/uL (0-0); REACTIVE LYMPHS % (MANUAL) 1 % (0-0); SEG#(MANUAL) 2.64 x10^3/uL (1.8-6.8); SEGS% (MANUAL) 66 % (42-75)
[2018-02-19 06:32] LABS: <PLATELET ESTIMATE> DECREASED; <PLT MORPHOLOGY> NORMAL PLT MORPH; ANISOCYTOSIS 1+; POLYCHROMASIA 1+; TOXIC GRAN 1+
[2018-02-19 06:50] VITALS: BP 100/63
[2018-02-19] MEDS: INSULIN LISPRO 100 UNITS/ML, PEN SQ-INSULIN SCH (09:00)
[2018-02-19] MEDS: LACTOBACILLUS CHEW TABLET PO SCH ×3 (09:14→20:54)
[2018-02-19] MEDS: PANTOPRAZOLE 40 MG IV IV SCH ×2 (09:14→20:53)
[2018-02-19] MEDS: LISINOPRIL 5 MG TABLET PO SCH ×2 (09:15→20:54)
[2018-02-19] MEDS: SODIUM CHLORIDE FLUSH 10ML SYR IVF SCH ×2 (09:16→20:54)
[2018-02-19] MEDS: ERTAPENEM 1 GM in SODIUM CHLORIDE 0.9% 50 ML IV SCH (09:24)
[2018-02-19] MEDS ORDERED: FAT EMUL IV SCH ×2 (10:00→17:00)
[2018-02-19] MEDS ORDERED: DEXTROSE 70% IV SCH ×2 (10:00→17:00)
[2018-02-19] MEDS ORDERED: [UNRECOGNIZED DRUG - OTHER] IV SCH ×2 (10:00→17:00)
[2018-02-19] MEDS ORDERED: SMOF TPN IV SCH ×2 (10:00→17:00)
[2018-02-19] MEDS ORDERED: AMINO ACID 10% IV SCH ×2 (10:00→17:00)
[2018-02-19 13:49] VITALS: BP 107/69
[2018-02-19] MEDS: FILTER, DISP 1.2 MICRON FOR TPN/PVN IV PRN (17:00)
[2018-02-19 18:49] VITALS: BP 117/65
[2018-02-19] MEDS: FLUCONAZOLE 200 MG/100 ML 100 ML IV SCH (20:35)
[2018-02-20] MEDS: OXYcodone 5 MG/5 ML ORAL.SOL UDC PO PRN ×5 (02:36→21:06)
[2018-02-20 03:23] VITALS: BP 102/65
[2018-02-20 04:53] LABS: % IRON SATURATION 19 % (20-55); ANION GAP 8 mmol/L (5-15); CALCIUM 8.4 mg/dL (8.5-10.1); CHLORIDE 98 mmol/L (98-107); IRON LEVEL 24 mcg/dL (50-170); TOTAL IRON BINDING CAPACITY 128 mcg/dL (250-450)
[2018-02-20 04:57] LABS: MEAN CORPUSCULAR HEMOGLOBIN 30.7 pg (27.0-34.8); MEAN CORPUSCULAR VOLUME 90.5 fL (80-100); MEAN PLATELET VOLUME 9.4 fL (7.4-10.4); PLATELET COUNT 98 x10^3/uL (130-400); RED CELL DISTRIBUTION WIDTH 17.4 % (9.6-15.2)
[2018-02-20 05:46] LABS: MD YES
[2018-02-20 05:48] LABS: BAND#(MANUAL) 0.35 x10^3/uL; BANDS%(MANUAL) 9 % (0-7); EOS#(MANUAL) 0.04 x10^3/uL (0.0-0.4); EOS% (MANUAL) 1 % (1-7); LYMPH#(MANUAL) 0.59 x10^3/uL (1-3.4); LYMPHS% (MANUAL) 15 % (22-44); METAMYELOCYTES# (MANUAL) 0.04 x10^3/uL (0-0); METAMYELOCYTES% (MANUAL) 1 % (0-1); MONOS#(MANUAL) 0.08 x10^3/uL (0.3-2.7); MONOS% (MANUAL) 2 % (2-9); NRBC % (MANUAL) 1 % (0-1); SEG#(MANUAL) 2.81 x10^3/uL (1.8-6.8); SEGS% (MANUAL) 72 % (42-75)
[2018-02-20 05:49] LABS: ANISOCYTOSIS 1+; POLYCHROMASIA 1+; TOXIC GRAN 1+
[2018-02-20 05:50] LABS: <PLATELET ESTIMATE> DECREASED; <PLT MORPHOLOGY> NORMAL PLT MORPH
[2018-02-20 07:36] VITALS: BP 100/58
[2018-02-20] MEDS: LISINOPRIL 5 MG TABLET PO SCH ×2 (07:59→21:07)
[2018-02-20] MEDS: FERROUS SULFATE 325 MG TABLET PO SCH (07:59)
[2018-02-20] MEDS: LACTOBACILLUS CHEW TABLET PO SCH ×3 (07:59→21:07)
[2018-02-20] MEDS: SODIUM CHLORIDE FLUSH 10ML SYR IVF SCH ×2 (08:00→21:06)
[2018-02-20] MEDS: INSULIN LISPRO 100 UNITS/ML, PEN SQ-INSULIN SCH (08:00)
[2018-02-20] MEDS: ERTAPENEM 1 GM in SODIUM CHLORIDE 0.9% 50 ML IV SCH (09:47)
[2018-02-20] MEDS ORDERED: NALOXONE 1 MG/ML, 2ML ONE (12:34)
[2018-02-20] MEDS ORDERED: NALOXONE 0.4 MG/ML, 1ML IVPush PRN ×2 (13:00)
[2018-02-20 13:21] VITALS: BP 99/64
[2018-02-20 13:56] VITALS: BP 95/59
[2018-02-20] MEDS ORDERED: LIDOCAINE-MPF 1%, 5ML ONE ×2 (16:17)
[2018-02-20] MEDS ORDERED: FAT EMUL IV SCH (17:00)
[2018-02-20] MEDS ORDERED: SMOF TPN IV SCH (17:00)
[2018-02-20] MEDS ORDERED: AMINO ACID 10% IV SCH (17:00)
[2018-02-20] MEDS ORDERED: DEXTROSE 70% IV SCH (17:00)
[2018-02-20] MEDS ORDERED: [UNRECOGNIZED DRUG - OTHER] IV SCH (17:00)
[2018-02-20 18:53] VITALS: BP 106/53
[2018-02-20] MEDS ORDERED: OMEPRAZOLE 20 MG CAPSULE.DR PO SCH (21:00)
[2018-02-20] MEDS ORDERED: OMNIPAQUE 350 MG/ML, 100ML BOTTLE ONE (21:27)
[2018-02-20] MEDS: FLUCONAZOLE 200 MG/100 ML 100 ML IV SCH (21:35)
[2018-02-21 00:42] VITALS: BP 104/58
[2018-02-21] MEDS: OXYcodone 5 MG/5 ML ORAL.SOL UDC PO PRN ×4 (03:58→16:18)
[2018-02-21 05:35] LABS: MEAN CORPUSCULAR HEMOGLOBIN 30.6 pg (27.0-34.8); MEAN CORPUSCULAR HGB CONC 33.8 g/dL (32.4-35.8); MEAN CORPUSCULAR VOLUME 90.3 fL (80-100); MEAN PLATELET VOLUME 9.8 fL (7.4-10.4); PLATELET COUNT 118 x10^3/uL (130-400); RED BLOOD COUNT 2.29 x10^6/uL (3.82-5.3); RED CELL DISTRIBUTION WIDTH 17.9 % (9.6-15.2)
[2018-02-21 05:42] LABS: ANION GAP 9 mmol/L (5-15); CALCIUM 8.4 mg/dL (8.5-10.1); CHLORIDE 97 mmol/L (98-107)
[2018-02-21 05:45] LABS: CREATININE 0.69 mg/dL (0.55-1.02); TRIGLYCERIDES 113 mg/dL (50-200)
[2018-02-21 05:53] LABS: MD YES
[2018-02-21 05:57] LABS: BAND#(MANUAL) 0.29 x10^3/uL; BANDS%(MANUAL) 7 % (0-7); EOS#(MANUAL) 0.08 x10^3/uL (0.0-0.4); EOS% (MANUAL) 2 % (1-7); LYMPHS% (MANUAL) 19 % (22-44); MONOS#(MANUAL) 0.04 x10^3/uL (0.3-2.7); MONOS% (MANUAL) 1 % (2-9); NRBC % (MANUAL) 1 % (0-1); SEG#(MANUAL) 2.98 x10^3/uL (1.8-6.8); SEGS% (MANUAL) 71 % (42-75)
[2018-02-21 05:58] LABS: <PLATELET ESTIMATE> DECREASED; ANISOCYTOSIS 1+; POLYCHROMASIA 1+; TOXIC GRAN 1+
[2018-02-21 05:59] LABS: LARGE PLATELETS 1+
[2018-02-21 06:37] VITALS: BP 90/43
[2018-02-21] MEDS: LISINOPRIL 5 MG TABLET PO SCH ×3 (09:00→20:45)
[2018-02-21] MEDS: ERTAPENEM 1 GM in SODIUM CHLORIDE 0.9% 50 ML IV SCH (09:18)
[2018-02-21] MEDS: SODIUM CHLORIDE FLUSH 10ML SYR IVF SCH ×2 (09:19→20:45)
[2018-02-21] MEDS: LACTOBACILLUS CHEW TABLET PO SCH ×3 (09:19→20:44)
[2018-02-21] MEDS: OMEPRAZOLE 20 MG CAPSULE.DR PO SCH ×2 (09:20→16:18)
[2018-02-21 12:00] VITALS: BP 93/52
[2018-02-21] MEDS: SODIUM CHLORIDE 0.9% 1,000 ML IV SCH (13:18)
[2018-02-21 18:52] VITALS: BP 93/52
[2018-02-21] MEDS: FLUCONAZOLE 200 MG/100 ML 100 ML IV SCH (20:45)
[2018-02-22] MEDS: SODIUM CHLORIDE 0.9% 1,000 ML IV SCH (01:43)
[2018-02-22] MEDS: OXYcodone 5 MG/5 ML ORAL.SOL UDC PO PRN ×4 (01:47→15:38)
[2018-02-22 01:57] VITALS: BP 93/55
[2018-02-22 05:59] LABS: MEAN CORPUSCULAR HEMOGLOBIN 30.9 pg (27.0-34.8); MEAN PLATELET VOLUME 9.5 fL (7.4-10.4); PLATELET COUNT 131 x10^3/uL (130-400); RED BLOOD COUNT 2.18 x10^6/uL (3.82-5.3); RED CELL DISTRIBUTION WIDTH 18.1 % (9.6-15.2)
[2018-02-22 06:07] LABS: ALBUMIN 2.3 g/dL (3.4-5.0); ANION GAP 7 mmol/L (5-15); CALCIUM 7.7 mg/dL (8.5-10.1); CHLORIDE 102 mmol/L (98-107); CREATININE 0.64 mg/dL (0.55-1.02)
[2018-02-22 06:28] LABS: MD YES
[2018-02-22 06:31] LABS: BAND#(MANUAL) 0.41 x10^3/uL; BANDS%(MANUAL) 9 % (0-7); LYMPH#(MANUAL) 0.87 x10^3/uL (1-3.4); LYMPHS% (MANUAL) 19 % (22-44); METAMYELOCYTES# (MANUAL) 0.14 x10^3/uL (0-0); METAMYELOCYTES% (MANUAL) 3 % (0-1); MONOS#(MANUAL) 0.05 x10^3/uL (0.3-2.7); MONOS% (MANUAL) 1 % (2-9); NRBC % (MANUAL) 1 % (0-1); SEG#(MANUAL) 3.13 x10^3/uL (1.8-6.8); SEGS% (MANUAL) 68 % (42-75)
[2018-02-22 06:32] LABS: <PLATELET ESTIMATE> ADEQUATE; <PLT MORPHOLOGY> NORMAL PLT MORPH; ANISOCYTOSIS 1+; POLYCHROMASIA 1+; TOXIC GRAN 1+
[2018-02-22 06:50] VITALS: BP 128/79
[2018-02-22] MEDS ORDERED: CALCIUM CARBONATE 500 MG TAB.CHEW PO PRN (07:00)
[2018-02-22 07:36] LABS: MD YES; MEAN CORPUSCULAR HEMOGLOBIN 30.3 pg (27.0-34.8); MEAN CORPUSCULAR HGB CONC 33.6 g/dL (32.4-35.8); MEAN CORPUSCULAR VOLUME 90.3 fL (80-100); MEAN PLATELET VOLUME 9.4 fL (7.4-10.4); PLATELET COUNT 147 x10^3/uL (130-400); RED BLOOD COUNT 2.33 x10^6/uL (3.82-5.3); RED CELL DISTRIBUTION WIDTH 17.6 % (9.6-15.2)
[2018-02-22 07:55] LABS: BAND#(MANUAL) 0.69 x10^3/uL; BANDS%(MANUAL) 14 % (0-7); LYMPH#(MANUAL) 0.39 x10^3/uL (1-3.4); LYMPHS% (MANUAL) 8 % (22-44); SEG#(MANUAL) 3.82 x10^3/uL (1.8-6.8); SEGS% (MANUAL) 78 % (42-75)
[2018-02-22 07:56] LABS: <PLATELET ESTIMATE> ADEQUATE; <PLT MORPHOLOGY> NORMAL PLT MORPH; ANISOCYTOSIS 1+; POLYCHROMASIA 1+; TOXIC GRAN 2+
[2018-02-22 08:11] LABS: INTERNATIONAL NORMALIZED RATIO 1.08 (0.93-1.1); PROTHROMBIN TIME 11.4 Seconds (9.6-11.5)
[2018-02-22] MEDS: OMEPRAZOLE 20 MG CAPSULE.DR PO SCH ×2 (08:36→15:38)
[2018-02-22] MEDS: LISINOPRIL 5 MG TABLET PO SCH (08:36)
[2018-02-22] MEDS: LACTOBACILLUS CHEW TABLET PO SCH ×2 (08:36→15:38)
[2018-02-22] MEDS: SODIUM CHLORIDE FLUSH 10ML SYR IVF SCH (08:37)
[2018-02-22] MEDS: FERROUS SULFATE 325 MG TABLET PO SCH (08:37)
[2018-02-22] MEDS: ERTAPENEM 1 GM in SODIUM CHLORIDE 0.9% 50 ML IV SCH (12:16)
[2018-02-22 14:08] VITALS: BP 101/64
[2018-02-22] MEDS ORDERED: ERTA1VIA4 IV (15:22)
[2018-02-22] MEDS ORDERED: FERR325T18 PO (15:23)
[2018-02-22] MEDS ORDERED: [UNRECOGNIZED DRUG - CODE] IV (15:26)
[2018-02-22] MEDS ORDERED: LACT1TAB5 PO (15:27)
[2018-02-22] MEDS ORDERED: LISI5TAB7 PO (15:28)
[2018-02-22] MEDS ORDERED: OMEP-110 PO (15:29)
[2018-02-22] MEDS ORDERED: ACET-1770 PO (15:30)
[2018-02-22] MEDS ORDERED: BISA10SU2 PR (15:31)
[2018-02-22] MEDS ORDERED: CALC500T PO (15:32)
[2018-02-22] MEDS ORDERED: ENAL1.2513 IVPush (15:37)
[2018-02-22] MEDS ORDERED: ONDA4TAB7 PO (15:38)
[2018-02-22] MEDS ORDERED: OXYC5SOL8 IVPush (15:39)
[2018-02-22] MEDS ORDERED: SENN8.8S5 NG (15:41)
[2018-02-22] MEDS ORDERED: HYDR20VI3 IVPush (15:42)
== END 2018-02-22 16:44 | DRG 853 ==
LOC: ED 14:20 → CCU 17:07 → 3NW 02-18 10:47
PROVIDERS: ADMIT Surgery; ATTEND Surgery
PROC: 5A1945Z Respiratory Ventilation, 24-96 Consecutive Hours (ICD-10-PCS; 2018-02-12)
PROC: 0BH17EZ Insertion of Endotracheal Airway into Trachea, Via Natural or Artificial Opening (ICD-10-PCS; 2018-02-12)
PROC: 0DU907Z Supplement Duodenum with Autologous Tissue Substitute, Open Approach (ICD-10-PCS; principal; 2018-02-12 15:00)
PROC: 0W993ZZ Drainage of Right Pleural Cavity, Percutaneous Approach (ICD-10-PCS; 2018-02-20)
DX: A41.01 Sepsis due to Methicillin susceptible Staphylococcus aureus (principal); E43 Unspecified severe protein-calorie malnutrition; K25.5 Chronic or unspecified gastric ulcer with perforation; K63.1 Perforation of intestine (nontraumatic); K65.9 Peritonitis, unspecified; R65.21 Severe sepsis with septic shock; J96.00 Acute respiratory failure, unspecified whether with hypoxia or hypercapnia; C78.7 Secondary malignant neoplasm of liver and intrahepatic bile duct; C79.51 Secondary malignant neoplasm of bone; D61.818 Other pancytopenia; D62 Acute posthemorrhagic anemia; G95.20 Unspecified cord compression; J90 Pleural effusion, not elsewhere classified; Z99.11 Dependence on respirator [ventilator] status; M48.54XA Collapsed vertebra, not elsewhere classified, thoracic region, initial encounter for fracture; J98.11 Atelectasis; G82.20 Paraplegia, unspecified; C50.919 Malignant neoplasm of unspecified site of unspecified female breast; E87.70 Fluid overload, unspecified; D69.59 Other secondary thrombocytopenia; I10 Essential (primary) hypertension; Y92.89 Other specified places as the place of occurrence of the external cause; T38.0X5A Adverse effect of glucocorticoids and synthetic analogues, initial encounter; Z90.12 Acquired absence of left breast and nipple; Z83.79 Family history of other diseases of the digestive system; Z82.61 Family history of arthritis; Z68.25 Body mass index [BMI] 25.0-25.9, adult
CPT/HCPCS: 32555; 36415; 36600; 74241; 82042; 83986; 84145; 87106; 99285; J3475; J7620; 71045; 74177; 77336; 77412; 80048; 80053; 82040; 82330; 82533; 82803; 82962; 83540; 83550; 83605; 83690; 83735; 84100; 84134; 84157; 84478; 84484; 85025; 85610; 85730; 86677; 86850; 86900; 87040; 87070; 87075; 87077; 87081; 87147; 87186; 87205; 87324; 88112; 88305; 89051; 93005; 93970; 94002; 94003; 94640; 96365; G0378; J0610; J1335; J1644; J2020; J2543; J2704; J3010; J3370; J3480; J7070; P9047; Q9967; C9113; J0360; J1447; J1450; J1720; J1815; J1940; J3420; J3490; J7030; J7040; J7050